=== PATIENT | male | born 1980 | race Caucasian/White ===

== ENCOUNTER → 2017-02-01 | Outpatient (CLI) | payer BC ==
[2017-02-01 09:05] LABS: ALT 39 U/L (21-72); AST 29 U/L (17-59); Alkaline Phosphatase 117 U/L (38-126); Anion Gap 11 mmol/L; Blood Urea Nitrogen 13 mg/dL (9-20); Calcium 10.2 mg/dL (8.4-10.2); Carbon Dioxide 29 mmol/L (22-30); Chloride 104 mmol/L (98-107); Cholesterol 217 mg/dL (<200); Glucose 94 mg/dL (74-99); HDL Cholesterol 64 mg/dL (40-60); Non-African American GFR(MDRD) >60 (>60 ml/min/1.73 sqM); Potassium 4.6 mmol/L (3.5-5.1); Sodium 144 mmol/L (137-145); Total Bilirubin 1.5 mg/dL (0.2-1.3); Total Protein 8.3 g/dL (6.3-8.2); Triglycerides 76 mg/dL (<150)
[2017-02-01 09:11] LABS: Aty Lym Flag Slight; CH 30.9; CHCM 34.7; HCT 45.5 % (39.0-53.0); HDW 2.49; HGB 15.9 gm/dL (13.0-17.5); MCH 31.3 pg (25.0-35.0); MCV 89.6 fL (80.0-100.0); RBC 5.08 m/uL (4.30-5.90); RDW 12.3 % (11.5-15.5); WBC 5.4 k/uL (3.8-10.6); WBC (Perox) 5.27
[2017-02-01 11:15] LABS: Add Differential Manual Differential
[2017-02-01 11:18] LABS: Nucleated Red Blood Cells 0 /100 WBC (0-0)
[2017-02-01 11:20] LABS: Manual Review Performed; Total Cells Counted 200
[2017-02-01 11:21] LABS: RBC Morphology Normal
[2017-02-01 14:04] LABS: Hemoglobin A1C 5.3 % (4.2-6.1)
== END | disposition home or self-care (01) ==
LOC: LABWHC1 08:20
PROVIDERS: ATTEND Internal Medicine Critical Care Medicine
DX: Z00.00 Encounter for general adult medical examination without abnormal findings (principal)
CPT/HCPCS: 36415; 80053; 80061; 83036; 84439; 84443; 85025

== ENCOUNTER 2017-11-17 11:20 | Observation (INO) | payer BC ==
[2017-11-17] MEDS ORDERED: SODIUM CHLORIDE 0.9% 500 ML IV STA (11:27)
[2017-11-17] MEDS ORDERED: RX INFO: IV CONTRAST WAS GIVEN 1 EACH MISC MISCELLANE PRN ×2 (11:28→14:14)
--- NOTE | 2017-11-17 11:34 | ED ---
General Adult HPI - General Stated complaint: SANTOSH/racing heart Time Seen by Provider: 11/17/17 11:27 Source: patient, RN notes reviewed - History of Present Illness Initial comments: 37-year-old male presents with chief complaint of chest pain and dyspnea. Patient was driving his car, felt a squeezing left-sided chest pain. Patient also had palpitations, states his heart was racing. Pain was nonradiating. Pain was accompanied by dyspnea. No nausea vomiting. Patient also complains of numbness in bilateral hands. He also feels shaky. Past medical history of asthma. Patient states he was well prior to this. No cough. No fever or chills. No URI symptoms. Patient has no known history of coronary artery disease. No history DVT or PE. He is not on any daily medications. At the time my evaluation, chest pain is improved, persistent dysuria. - Related Data Home Medications Medication Instructions Recorded Confirmed No Known Home Medications [No 11/17/17 11/17/17 Known Home Medications] Allergies Allergy/AdvReac Type Severity Reaction Status Date / Time No Known Allergies Allergy Verified 11/17/17 12:21 Review of Systems ROS Statement: Those systems with pertinent positive or pertinent negative responses have been documented in the HPI. ROS Other: All systems not noted in ROS Statement are negative. General Exam General appearance: alert, in no apparent distress Head exam: Present: atraumatic, normocephalic Eye exam: Present: normal appearance, PERRL ENT exam: Present: normal exam Neck exam: Present: normal inspection. Absent: tenderness, meningismus Respiratory exam: Present: normal lung sounds bilaterally. Absent: respiratory distress, wheezes Cardiovascular Exam: Present: normal rhythm, tachycardia GI/Abdominal exam: Present: soft. Absent: distended, tenderness Extremities exam: Present: normal inspection, normal capillary refill, other ( Bilateral radial pulses symmetric, bilateral DP pulses symmetric) Neurological exam: Present: alert, oriented X3, CN II-XII intact. Absent: motor sensory deficit Skin exam: Present: warm, intact, diaphoretic Course Vital Signs 11/17/17 11/17/17 11/17/17 11:32 11:41 12:34 Temperature 97.7 F Pulse Rate 85 89 77 Respiratory 18 18 18 Rate Blood Pressure 166/95 160/83 143/91 O2 Sat by Pulse 100 100 97 Oximetry EKG Findings - EKG Comments: EKG Findings:: EKG normal sinus rhythm, ventricular rate 87, WA interval 160, QRS duration 96, QTC 438, there is Q-wave in lead 3 with T-wave inversion, no ST segment elevation. Medical Decision Making - Medical Decision Making 37-year-old male with past medical history of asthma presents with sudden onset squeezing chest pain dyspnea, diaphoresis and palpitations. Pain is resolved at the time of initial evaluation. EKG shows Q waves in lead 3 with T-wave inversion, this is suggestive of PE. CT angiography is obtained, however this is a suboptimal study due to dye load. Patient's symptoms resolving in the emergency department without treatment. He is evaluated by cardiology and pulmonology. Plan at this time is for patient to be taken to the [facility] for coronary angiography. D-dimer and Echo has been added. Diagnosis: Chest pain. - Lab Data Result diagrams: 11/17/17 11:30 11/17/17 11:30 Lab Results 11/17/17 11/17/17 11/17/17 Range/Units 11:30 11:30 11:30 WBC 8.7 (3.8-10.6) k/uL RBC 5.17 (4.30-5.90) m/uL Hgb 15.2 (13.0-17.5) gm/dL Hct 44.3 (39.0-53.0) % MCV 85.7 (80.0-100.0) fL MCH 29.4 (25.0-35.0) pg MCHC 34.3 (31.0-37.0) g/dL RDW 12.1 (11.5-15.5) % Plt Count 357 (150-450) k/uL Neutrophils % 61 % Lymphocytes % 27 % Monocytes % 6 % Eosinophils % 3 % Basophils % 1 % Neutrophils # 5.2 (1.3-7.7) k/uL Lymphocytes # 2.4 (1.0-4.8) k/uL Monocytes # 0.5 (0-1.0) k/uL Eosinophils # 0.2 (0-0.7) k/uL Basophils # 0.1 (0-0.2) k/uL PT (9.0-12.0) sec INR (<1.2) APTT (22.0-30.0) sec Sodium 143 (137-145) mmol/L Potassium 4.0 (3.5-5.1) mmol/L Chloride 102 (98-107) mmol/L Carbon Dioxide 25 (22-30) mmol/L Anion Gap 16 mmol/L BUN 14 (9-20) mg/dL Creatinine 0.88 (0.66-1.25) mg/dL Est GFR (CKD-EPI)AfAm >90 (>60 ml/min/1.73 sqM) Est GFR (CKD-EPI)NonAf >90 (>60 ml/min/1.73 sqM) Glucose 118 H (74-99) mg/dL Calcium 10.4 H (8.4-10.2) mg/dL Magnesium 1.8 (1.6-2.3) mg/dL Total Bilirubin 1.2 (0.2-1.3) mg/dL AST 24 (17-59) U/L ALT 27 (21-72) U/L Alkaline Phosphatase 127 H (38-126) U/L Total Creatine Kinase 137 (55-170) U/L CK-MB (CK-2) 0.5 (0.0-2.4) ng/mL CK-MB (CK-2) Rel Index 0.4 Troponin I <0.012 (0.000-0.034) ng/mL NT-Pro-B Natriuret Pep pg/mL Total Protein 8.4 H (6.3-8.2) g/dL Albumin 5.1 H (3.5-5.0) g/dL Lipase 89 (23-300) U/L 11/17/17 11/17/17 Range/Units 11:30 11:30 WBC (3.8-10.6) k/uL RBC (4.30-5.90) m/uL Hgb (13.0-17.5) gm/dL Hct (39.0-53.0) % MCV (80.0-100.0) fL MCH (25.0-35.0) pg MCHC (31.0-37.0) g/dL RDW (11.5-15.5) % Plt Count (150-450) k/uL Neutrophils % % Lymphocytes % % Monocytes % % Eosinophils % % Basophils % % Neutrophils # (1.3-7.7) k/uL Lymphocytes # (1.0-4.8) k/uL Monocytes # (0-1.0) k/uL Eosinophils # (0-0.7) k/uL Basophils # (0-0.2) k/uL PT 10.4 (9.0-12.0) sec INR 1.1 (<1.2) APTT 23.0 (22.0-30.0) sec Sodium (137-145) mmol/L Potassium (3.5-5.1) mmol/L Chloride (98-107) mmol/L Carbon Dioxide (22-30) mmol/L Anion Gap mmol/L BUN (9-20) mg/dL Creatinine (0.66-1.25) mg/dL Est GFR (CKD-EPI)AfAm (>60 ml/min/1.73 sqM) Est GFR (CKD-EPI)NonAf (>60 ml/min/1.73 sqM) Glucose (74-99) mg/dL Calcium (8.4-10.2) mg/dL Magnesium (1.6-2.3) mg/dL Total Bilirubin (0.2-1.3) mg/dL AST (17-59) U/L ALT (21-72) U/L Alkaline Phosphatase (38-126) U/L Total Creatine Kinase (55-170) U/L CK-MB (CK-2) (0.0-2.4) ng/mL CK-MB (CK-2) Rel Index Troponin I (0.000-0.034) ng/mL NT-Pro-B Natriuret Pep 25 pg/mL Total Protein (6.3-8.2) g/dL Albumin (3.5-5.0) g/dL Lipase (23-300) U/L Disposition Clinical Impression: Chest pain Disposition: ADMITTED IP TO THIS [facility] Condition: Stable Referrals: Rome Marcelo DO [Primary Care Provider] - 1-2 days Decision to Admit Reason: Admit from EC Decision Date: 11/17/17 Decision Time: 13:02
[2017-11-17 11:43] LABS: Basophils # (A) 0.1 k/uL (0-0.2); Basophils % (A) 1 %; Eosinophils # (A) 0.2 k/uL (0-0.7); Eosinophils % (A) 3 %; HCT 44.3 % (39.0-53.0); HGB 15.2 gm/dL (13.0-17.5); Lymphocytes # (A) 2.4 k/uL (1.0-4.8); Lymphocytes % (A) 27 %; MCH 29.4 pg (25.0-35.0); MCHC 34.3 g/dL (31.0-37.0); MCV 85.7 fL (80.0-100.0); Monocytes # (A) 0.5 k/uL (0-1.0); Monocytes % (A) 6 %; Neutrophils # (A) 5.2 k/uL (1.3-7.7); Neutrophils % (A) 61 %; Platelet Count 357 k/uL (150-450); RBC 5.17 m/uL (4.30-5.90); RDW 12.1 % (11.5-15.5); WBC 8.7 k/uL (3.8-10.6)
--- NOTE | 2017-11-17 11:49 | XR ---
EXAMINATION TYPE: XR chest 1V portable DATE OF EXAM: 11/17/2017 COMPARISON: Chest x-ray August 08, 2011. CT chest 04/30/2012. HISTORY: Chest pain. TECHNIQUE: Single AP portable upright view of the chest is obtained. FINDINGS: There is no focal air space opacity, pleural effusion, or pneumothorax seen. The cardiac silhouette size is within normal limits. The osseous structures are intact. IMPRESSION: No acute process currently.
[2017-11-17 11:54] LABS: ALT 27 U/L (21-72); AST 24 U/L (17-59); Albumin 5.1 g/dL (3.5-5.0); Alkaline Phosphatase 127 U/L (38-126); Anion Gap 16 mmol/L; Blood Urea Nitrogen 14 mg/dL (9-20); Calcium 10.4 mg/dL (8.4-10.2); Carbon Dioxide 25 mmol/L (22-30); Chloride 102 mmol/L (98-107); Glucose 118 mg/dL (74-99); Lipase 89 U/L (23-300); Magnesium 1.8 mg/dL (1.6-2.3); Sodium 143 mmol/L (137-145); Total Bilirubin 1.2 mg/dL (0.2-1.3); Total Protein 8.4 g/dL (6.3-8.2)
[2017-11-17 11:57] LABS: INR 1.1 (<1.2); Prothrombin Time 10.4 sec (9.0-12.0)
[2017-11-17 12:12] LABS: Creatine Kinase 137 U/L (55-170)
--- NOTE | 2017-11-17 12:22 | CT ---
EXAMINATION TYPE: CT angio chest DATE OF EXAM: 11/17/2017 COMPARISON: CT chest April 30, 2012 HISTORY: Patient complains of sudden onset shortness of breath and chest pain today. CT DLP: 525 mGycm. Automated Exposure Control for Dose Reduction was Utilized. CONTRAST: CTA scan of the thorax is performed with IV Contrast, patient injected with 100 mL of Omnipaque 350, pulmonary embolism protocol. MIP Images are created on CT scanner and reviewed. FINDINGS: LUNGS: Slight degradation from respiratory motion artifact is present. There is no suspicious consoli dation seen bilaterally. No pleural effusion or pneumothorax is identified. Tracheobronchial tree is patent. MEDIASTINUM: There is suboptimal bolus with heterogeneity and near equal contrast the right and left heart systems. There is no CT evidence of large central or lobar pulmonary embolism. Smaller segmenta l and subsegmental PE though not visualized cannot be definitively excluded on this study. There are no greater than 1 cm hilar or mediastinal lymph nodes. No cardiomegaly or pericardial effusion is s een. There is mild left atrial and left ventricular dilatation felt present OTHER: No additional significant abnormality is seen. IMPRESSION: Suboptimal study without CT evidence for central pulmonary embolism. No suspicious acute pulmonary process.
[2017-11-17 12:25] LABS: Creatine Kinase MB 0.5 ng/mL (0.0-2.4); Troponin I <0.012 ng/mL (0.000-0.034)
[2017-11-17] MEDS ORDERED: NALOXONE 0.4 MG/ML 1 ML VIAL IV PRN (12:59)
[2017-11-17] MEDS ORDERED: ASPIRIN 81 MG PO STA (13:01)
[2017-11-17] MEDS ORDERED: ATORVASTATIN 80 MG TAB PO STA (13:02)
[2017-11-17] MEDS ORDERED: fentaNYL (PF) 50 MCG/ML 2 ML AMP ONE (13:34)
[2017-11-17] MEDS ORDERED: VERAPAMIL 2.5 MG/ML 2 ML AMP ONE (13:40)
[2017-11-17] MEDS ORDERED: fentaNYL (PF) 50 MCG/ML 2 ML AMP IV ONE (13:47)
[2017-11-17] MEDS ORDERED: LIDOCAINE 2% INJ 20 MG/ML SQ ONE (13:48)
[2017-11-17] MEDS ORDERED: SODIUM CHLORIDE 0.9% 1,000 ML IV ONE (13:50)
[2017-11-17] MEDS ORDERED: VERAPAMIL SYRINGE (5 MG/10 ML) INTRAARTER ONE (13:50)
[2017-11-17] MEDS ORDERED: HEPARIN SODIUM 1,000 UN/ML (10ML VL) ONE (13:55)
[2017-11-17] MEDS ORDERED: HEPARIN SODIUM 1,000 UN/ML (10ML VL) IV ONE (14:00)
[2017-11-17] MEDS ORDERED: IOHEXOL 350 MG/ML 125ML BOTTLE INJ ONE (14:01)
[2017-11-17] MEDS ORDERED: SODIUM CHLORIDE 0.9% 1,000 ML IV SCH (14:15)
--- NOTE | 2017-11-17 14:33 | CC ---
CARDIAC CATHETERIZATION REPORT Mr. Campbell is a 37-year-old male with no prior documented history of cardiac disease who presented to the emergency room with an episode of severe chest discomfort associated with diaphoresis, dizziness and palpitations. His initial EKG and enzymes were unremarkable. He was evaluated by Dr. Triplett. Recommendation was made regarding cardiac catheterization. The procedure as well as risks and complications were discussed with the patient, who was in full understanding and agreement. PROCEDURE: Patient was brought to the track lab[facility] in a fasting, semi-sedated state after receiving fentanyl and Benadryl and achieving a moderate conscious sedated state. Using Xylocaine anesthesia and the Seldinger technique, a 6-Argentine sheath was introduced in the right radial artery. Selective right and left coronary angiography was performed using 5-Argentine, 3.5 Bend, right and left Shelly catheters. Multiple views were taken of the arteries, including hemiaxial views. Following that, a 5-Argentine tight pigtail catheter was introduced in the left ventricle and a 30-degree JETER view of the left ventricle was obtained. Following that, catheter and sheaths were removed. Hemostasis was obtained with deployment of a TR band. There was no immediate complication. Patient was returned to his room in stable condition. FINDINGS: 1. Left main. This is a large-sized vessel trifurcating into left circumflex, left anterior descending artery and ramus intermedius. Left main coronary artery is without any obstructive coronary artery disease. 2. Left anterior descending. This is a large-sized vessel reaching toward the apex with a wrap around apex segment giving rise to 3 obtuse marginal branches, 2 of moderate caliber. The left anterior descending artery as well as its branches have no evidence of obstructive coronary artery disease. 3. Left circumflex. This is a nondominant, moderately-sized vessel that gives rise to 3 small obtuse marginal branches. The left circumflex as well as its branches have no evidence of obstructive coronary artery disease. 4. Ramus intermedius. This is a moderately sized vessel reaching toward the apical wall. The ramus intermedius and its branches have no evidence of obstructive coronary artery disease. 5. Right coronary artery: This is a large dominant vessel bifurcating distally into PDA and posterolateral segment and branches. The PLV branch is large and covers the lateral wall. The right coronary artery and its branches have no evidence of obstructive coronary artery disease. 6. Left ventriculogram. Left ventriculogram was performed in 30-degree JETER view and reveals normal left ventricular size and systolic function. Ejection fraction is 60%. 7. Hemodynamics. There was no gradient across the aortic valve. The left ventricular end-diastolic pressure was 12 mmHg. CONCLUSION: 1. Normal coronary arteries. 2. Normal left ventricular size and systolic function. RECOMMENDATION: In view of findings and anatomy, I have recommended continue medical therapy. I see no evidence to suggest obstructive coronary artery disease as etiology of his symptoms. Those findings and recommendations were discussed with the patient and his family, and they are in full understanding and agreement. DURATION OF PROCEDURE: 17 minutes. MMODL / IJN: [id number] /
--- NOTE | 2017-11-17 14:46 | LTR ---
November 17, 2017 To: Dr. Rome Marcelo Re: Blue Campbell (76) Dear Dr. Marcelo, I had the pleasure of performing cardiac catheterization on Mr. Campbell at [facility] on November 17, and a full copy of the procedure note will be forwarded to you. In brief, he was found to have no evidence of obstructive coronary artery disease, with a normal left ventricular size and systolic function. Based on those findings, I have recommended continuing on the present medical regimen. Thank you again for allowing me to participate in his care. Please feel free to call with any questions. Sincerely, Sergio ORELLANAL / AFSANEHN: [id number] /
[2017-11-17 14:47] VITALS: BMI 26.2
[2017-11-17 16:09] VITALS: RESP 16; TEMP 98.8
--- NOTE | 2017-11-17 17:01 | P.HPIM ---
History of Present Illness H&P Date: 11/17/17 Chief Complaint: Chest pain A 37-year-old male patient, healthy without any known medical problems and comorbidities. The patient's chief complaint when he presented to the emergency department was chest pain and this occurred while he was driving his car this morning. He was on the road to burr picker his kids when he felt a squeezing left-sided chest pain. He became concerned and worried and following that he became short of breath and somewhat diaphoretic. The pain was not radiating it was not third taken nature. He did not have any nausea or vomiting. He did not pass out. No syncope. No swelling in lower extremities. No previous history of cardiac disease. No previous history of DVT or pulmonary embolism. In the emergency department the blood work was essentially negative. He had a normal d-dimer. CT angios the chest was done that showed no evidence of any pulmonary embolism nor there was any pneumonia. The patient' s first set of chronic is a was negative. EKG was nonspecific and was in normal sinus rhythm. The patient a cardiac catheterization and the patient was found to have normal coronaries. Currently is on observation unit and the patient is being hydrated in its patient for discharge within next few hours. The cardiac catheterization was done through the radial approach by Dr. Rodríguez. An echocardiogram was also done in the emergency department that showed no acute abnormalities. Currently the patient is free of any chest pain. In fact the chest pain lasted only for 15 minutes. Review of Systems Constitutional: Denies chills, Denies fever Eyes: denies blurred vision, denies bulging eye, denies decreased vision Ears: deny: decreased hearing, ear discharge, earache Ears, nose, mouth and throat: Denies headache, Denies sore throat Cardiovascular: Reports chest pain Respiratory: Denies cough Gastrointestinal: Denies abdominal pain, Denies diarrhea, Denies nausea, Denies vomiting Genitourinary: Reports as per HPI Musculoskeletal: Reports as per HPI Musculoskeletal: absent: ankle pain, ankle stiffness, ankle swelling Integumentary: Denies pruritus, Denies rash Neurological: Denies numbness, Denies weakness Psychiatric: Denies anxiety, Denies depression Endocrine: Denies fatigue, Denies weight change Hematologic/Lymphatic: Reports as per HPI Allergic/Immunologic: Reports as per HPI Past Medical History Past Medical History: Asthma History of Any Multi-Drug Resistant Organisms: None Reported Past Surgical History: No Surgical Hx Reported Smoking Status: Never smoker Medications and Allergies Home Medications Medication Instructions Recorded Confirmed Type No Known Home Medications [No 11/17/17 11/17/17 History Known Home Medications] Allergies Allergy/AdvReac Type Severity Reaction Status Date / Time No Known Allergies Allergy Verified 11/17/17 12:21 Physical Exam Vitals: Vital Signs Temp Pulse Pulse Resp BP BP Pulse Ox 11/17/17 14:20 98.8 F 81 16 133/72 98 11/17/17 13:45 97.7 F 87 18 148/67 98 11/17/17 13:06 98 18 128/70 97 11/17/17 12:34 77 18 143/91 97 11/17/17 11:41 89 18 160/83 100 11/17/17 11:32 97.7 F 85 18 166/95 100 Intake and Output 11/17/17 11/17/17 11/17/17 06:59 14:59 22:59 Intake Total 175 Balance 175 Intake: IV 75 Oral 100 Other: Voiding Method Toilet Toilet Weight 83 kg Patient Weight 11/18/17 07:59 Weight 83 kg The patient appeared well nourished and normally developed. Vital signs as documented. Head exam is unremarkable. No scleral icterus or corneal arcus noted. Neck is without jugular venous distension, thyromegaly, or carotid bruits. Carotid upstrokes are brisk bilaterally. Lungs are clear to auscultation and percussion. Cardiac exam reveals the PMI to be normally sized and situated. Rhythm is regular. First and second heart sounds normal. No murmurs, rubs or gallops. Abdominal exam reveals normal bowel sounds, no masses , no organomegaly and no aortic enlargement. Extremities are nonedematous and both femoral and pedal pulses are normal.Examination of the skin revealed no evidence of significant rashes, suspicious appearing nevi or other concerning lesions. Neurologic the patient is awake and alert and there is no focal neurological deficit. Results CBC & Chem 7: 11/17/17 11:30 11/17/17 11:30 Labs: Abnormal Lab Results - Last 24 Hours (Table) 11/17/17 Range/Units 11:30 Glucose 118 H (74-99) mg/dL Calcium 10.4 H (8.4-10.2) mg/dL Alkaline Phosphatase 127 H (38-126) U/L Total Protein 8.4 H (6.3-8.2) g/dL Albumin 5.1 H (3.5-5.0) g/dL CT scan - chest: image reviewed Thrombosis Risk Factor Assmnt - Choose All That Apply Any of the Below Risk Factors Present?: Yes Each Factor Represents 1 point: Age 41-60 years Other Risk Factors: No Thrombosis Risk Factor Assessment Total Risk Factor Score: 1 Thrombosis Risk Factor Assessment Level: Low Risk Assessment and Plan Plan: Assessment 1 atypical chest pain, not related to any cardiopulmonary cause and the patient is completely recovered and is chest pain-free. He remains hemodynamically stable. Plan Hydrate the patient for the next few hours with IV fluids and the patient is receiving normal saline at the rate of 100 mL an hour.. The patient can be discharged home this afternoon to be followed up with Dr. Marcelo
--- NOTE | 2017-11-17 17:04 | P.DS ---
Providers Date of admission: 11/17/17 12:59 Attending physician: Luis Ruiz Consults: 11/17/17 12:26 Consult Physician Stat Consulting Provider: Karel Triplett Consult Reason/Comments: CP Do you want consulting provider notified?: Already Contacted Primary care physician: Rome Marcelo [place] [facility] Course: The patient was evaluated for his chest pain. He underwent a CT angios the chest that came back negative. Cardiac enzymes were normal. EKG was negative. D-dimer was low. Cardiac catheterization was done and was consistent with normal coronaries. Echocardiogram was also within normal limits. The patient was discharged home and the chest pain was labeled to be atypical and noncardiac and nonpulmonary in nature. Pertinent Studies: CT angios the chest, EKG, echocardiogram, cardiac catheterization Procedures: Cardiac catheterization Plan - Discharge Summary Discharge Rx Participant: No New Discharge Prescriptions: No Action No Known Home Medications [No Known Home Medications] Discharge Medication List No Known Home Medications [No Known Home Medications] 11/17/17 [History] Follow up Appointment(s)/Referral(s): Rome Marcelo DO [Primary Care Provider] - 1-2 days Discharge Disposition: HOME SELF-CARE
[2017-11-17 17:14] VITALS: BP 125/76; PULSE 69
--- NOTE | 2017-11-17 19:16 | CONS ---
CONSULTATION 37-year-old gentleman who presented with chest discomfort. The patient is a 37 -year-old patient who was in his car driving and he started experiencing fairly sever chest discomfort that made him quite uncomfortable and finally he had to stop. He had associated symptoms of feeling weak and dizzy. His heart racing and he is feeling sweaty and flushed and very weak. He finally pulled over, went to his friend's place and then was brought to the emergency room. By the time he arrived in the emergency room, he was pain free. 12-lead ECG showed sinus rhythm without any ST-segment abnormalities while in a pain-free state. He has never experienced syncope, but he has had occasional dizzy spells. PAST HISTORY: No history of diabetes, hypertension, dyslipidemia. ALLERGIES: No known drug allergies. MEDICATIONS: He is not on any cardiac medications. SOCIAL HISTORY: No history of smoking. REVIEW OF SYSTEMS: No fever, chills, or rigors. No cough or expectoration. No nausea, vomiting, diarrhea, dysuria. No strokes, seizures or skin lesions. No musculoskeletal complaints. EXAMINATION: His blood pressure is a 148/67 mmHg. Pulse rate in the 80s. Afebrile, 98 degrees Fahrenheit. Heart rate in the 80s. Blood pressure 128/70 mmHg. Some of the readings are elevated, but he does not have a history of hypertension. No JVD. No thyromegaly. No carotid bruits. HEART: Sounds S1, S2 normal. No murmurs or gallops, no rub. Breath sounds are clear. No rhonchi, no crackles. ABDOMEN: Soft, nontender. No JVD. No hepatic jugular reflux. Extremities are warm. No edema. A 12-lead ECG was reviewed and is normal. LABS: Reviewed. Hemoglobin is 15.2, lytes are normal. Glucose 118, alkaline phosphatase in the upper limits of normal. IMPRESSION: I had a detailed discussion with him and his regarding his options of proceeding with coronary angiography versus observation, IV heparin and reassessment thereafter and the pros and cons were discussed and he decided to proceed with coronary angiography to delineate any epicardial coronary artery disease because of his transient but very severe chest discomfort while driving with the associated symptoms as mentioned above, further management thereafter. I called Dr. Rodríguez and we will be proceeding with coronary angiography. MMODL / IJN: [id number] /
--- NOTE | 2017-11-18 13:45 | ECHOF ---
Referral Reason:cp MEASUREMENTS -------- HEIGHT: 180.3 cm WEIGHT: 83.9 kg BP: IVSd: 1.0 cm (0.6 - 1.1) LVIDd: 4.0 cm (3.9 - 5.3) LVPWd: 1.2 cm (0.6 - 1.1) IVSs: 1.5 cm LVIDs: 2.4 cm LVPWs: 1.6 cm RVIDd: 3.7 cm (< 3.3) Ao Diam: 3.1 cm (2.0 - 3.7) LA Diam: 3.7 cm (2.7 - 3.8) AV Cusp: 2.3 cm (1.5 - 2.6) EPSS: 0.7 cm MV E Chadwick: 0.80 m/s MV DecT: 242 ms MV A Chadwick: 0.63 m/s MV E/A Ratio: 1.27 RAP: 5.00 mmHg RVSP: 29.66 mmHg MV EF SLOPE: 119.48 mm/s (70 - 150) MV EXCURSION: 20.82 mm (> 18.000) FINDINGS -------- Sinus rhythm. This was a technically good study. The left ventricular size is normal. There is borderline concentric left ventricular hypertrophy. Overall left ventricular systolic function is normal with, an EF between 55 - 60 %. The right ventricle is mildly enlarged. The left atrium is normal in size. The right atrium is normal in size. The aortic valve is trileaflet, and appears structurally normal. No aortic stenosis or regurgitation. There is trace mitral regurgitation. Trace tricuspid regurgitation present. The right ventricular systolic pressure, as measured by Dopp ler, is 29.66mmHg. Pulmonic valve appears structurally normal. The aortic root size is normal. Normal inferior vena cava with normal inspiratory collapse consistent with estimated right atrial pre ssure of 5 mmHg. The pericardium is normal. CONCLUSIONS -------- 1. Sinus rhythm. 2. This was a technically good study. 3. The left ventricular size is normal. 4. There is borderline concentric left ventricular hypertrophy. 5. Overall left ventricular systolic function is normal with, an EF between 55 - 60 %. 6. The right ventricle is mildly enlarged. 7. The left atrium is normal in size. 8. The right atrium is normal in size. 9. The aortic valve is trileaflet, and appears structurally normal. No aortic stenosis or regurgitati on. 10. There is trace mitral regurgitation. 11. Trace tricuspid regurgitation present. 12. The right ventricular systolic pressure, as measured by Doppler, is 29.66mmHg. 13. Pulmonic valve appears structurally normal. 14. The aortic root size is normal. 15. Normal inferior vena cava with normal inspiratory collapse consistent with estimated right atrial pressure of 5 mmHg. 16. The pericardium is normal. DIRECTOR OF STUDENT AID: Roxann Perry RDCS
== END 2017-11-17 18:56 | disposition home or self-care (01) ==
LOC: EC 11:20 → 3OBS 12:59
PROVIDERS: ADMIT Internal Medicine Critical Care Medicine; ATTEND Internal Medicine Critical Care Medicine
DX: R07.89 Other chest pain (principal); R06.00 Dyspnea, unspecified; R00.2 Palpitations; R00.0 Tachycardia, unspecified; R20.0 Anesthesia of skin; R61 Generalized hyperhidrosis; R53.1 Weakness; R42 Dizziness and giddiness; R06.02 Shortness of breath; J45.909 Unspecified asthma, uncomplicated
CPT/HCPCS: 99285 ×2; 36415; 93306; 93458; 85379; 83880; 80053; 82550; 82553; 83690; 83735; 84484; 85025; 85610; 85730; 71045; 71275; G0378; C1894; C1769; J2001; Q9967 ×2; J3010; J1644

== ENCOUNTER → 2018-02-05 | Outpatient (CLI) | payer BC ==
[2018-02-05 11:59] LABS: Basophils # (A) 0.1 k/uL (0-0.2); Basophils % (A) 2 %; Eosinophils # (A) 0.1 k/uL (0-0.7); Eosinophils % (A) 2 %; HCT 45.5 % (39.0-53.0); Lymphocytes # (A) 1.7 k/uL (1.0-4.8); Lymphocytes % (A) 27 %; MCH 29.5 pg (25.0-35.0); MCV 89.4 fL (80.0-100.0); Mean Platelet Volume 7.4; Monocytes # (A) 0.5 k/uL (0-1.0); Monocytes % (A) 8 %; Neutrophils # (A) 3.6 k/uL (1.3-7.7); Neutrophils % (A) 57 %; Platelet Count 310 k/uL (150-450); RBC 5.09 m/uL (4.30-5.90); RDW 12.4 % (11.5-15.5); WBC 6.2 k/uL (3.8-10.6)
[2018-02-05 12:25] LABS: ALT 42 U/L (21-72); AST 29 U/L (17-59); Albumin 4.9 g/dL (3.5-5.0); Alkaline Phosphatase 128 U/L (38-126); Anion Gap 14 mmol/L; Blood Urea Nitrogen 13 mg/dL (9-20); Calcium 10.1 mg/dL (8.4-10.2); Carbon Dioxide 29 mmol/L (22-30); Chloride 98 mmol/L (98-107); Cholesterol 229 mg/dL (<200); Glucose 91 mg/dL (74-99); HDL Cholesterol 70 mg/dL (40-60); LDL Cholesterol,Calculated 139 mg/dL (0-99); Potassium 4.6 mmol/L (3.5-5.1); Sodium 141 mmol/L (137-145); Total Bilirubin 1.7 mg/dL (0.2-1.3); Triglycerides 98 mg/dL (<150)
[2018-02-05 12:38] LABS: T4, Free (Free Thyroxine) 1.22 ng/dL (0.78-2.19)
[2018-02-05 22:18] LABS: Hemoglobin A1C 5.4 % (4.0-6.0)
== END | disposition home or self-care (01) ==
LOC: LABWHC1 10:57
PROVIDERS: ATTEND Internal Medicine Critical Care Medicine
DX: Z00.00 Encounter for general adult medical examination without abnormal findings (principal)
CPT/HCPCS: 36415; 80053; 80061; 83036; 84439; 84443; 85025

== ENCOUNTER → 2018-08-13 | Outpatient (CLI) | payer BC ==
[2018-08-13 14:51] LABS: Basophils # (A) 0.1 k/uL (0-0.2); Basophils % (A) 1 %; Eosinophils # (A) 0.2 k/uL (0-0.7); Eosinophils % (A) 2 %; HCT 46.7 % (39.0-53.0); HGB 15.8 gm/dL (13.0-17.5); Lymphocytes # (A) 1.7 k/uL (1.0-4.8); Lymphocytes % (A) 27 %; MCH 30.1 pg (25.0-35.0); MCHC 33.9 g/dL (31.0-37.0); MCV 88.9 fL (80.0-100.0); Mean Platelet Volume 7.3; Monocytes # (A) 0.5 k/uL (0-1.0); Monocytes % (A) 8 %; Neutrophils # (A) 3.7 k/uL (1.3-7.7); Neutrophils % (A) 60 %; Platelet Count 335 k/uL (150-450); RBC 5.25 m/uL (4.30-5.90); RDW 11.9 % (11.5-15.5); WBC 6.3 k/uL (3.8-10.6)
[2018-08-13 19:22] LABS: Albumin 4.8 g/dL (3.80-4.90); Calcium 9.8 mg/dL (8.7-10.3); Globulin 2.4 g/dL (2.1-3.7); Potassium 4.5 mmol/L (3.5-5.5); Total Bilirubin 0.8 mg/dL (0.2-1.2); Total Protein 7.2 g/dL (6.2-8.2)
== END | disposition home or self-care (01) ==
LOC: LABWHC1 13:28
PROVIDERS: ATTEND Internal Medicine Critical Care Medicine
DX: R10.9 Unspecified abdominal pain (principal)
CPT/HCPCS: 36415; 80053; 82150; 83690; 85025; 86677

== ENCOUNTER → 2018-08-23 | Outpatient (CLI) | payer BC ==
--- NOTE | 2018-08-23 12:29 | CT ---
EXAMINATION TYPE: CT abdomen pelvis w con DATE OF EXAM: 08/23/2018 COMPARISON: CT abdomen pelvis 09/24/2009 HISTORY: Disease of gallbladder CT DLP: 877.9 mGycm Automated exposure control for dose reduction was used. TECHNIQUE: Helical acquisition of images from the lung bases through the pelvis have been completed. CONTRAST: Performed with Oral Contrast and with IV Contrast, patient injected with 100 mL of Isovue 300. FINDINGS: LUNG BASES: No significant abnormality is appreciated. AORTA: No significant abnormality is appreciated. LIVER/GB: No significant abnormality is appreciated. PANCREAS: No significant abnormality is seen. SPLEEN: Enlarged. ADRENALS: No significant abnormality is seen. KIDNEYS: No significant abnormality is seen. REPRODUCTIVE ORGANS: No significant abnormality is seen BOWEL: No significant abnormality is seen. The appendix is normal. Small umbilical hernia contains f at. FREE AIR: No Free Air visible. ASCITES: None visible. PELVIC ADENOPATHY: None visualized. RETROPERITONEAL ADENOPATHY: No Retroperitoneal Adenopathy visible. URINARY BLADDER: No significant abnormality is seen. OSSEOUS STRUCTURES: No significant abnormality is seen. IMPRESSION: SPLEEN IS STABLE AND MEASURES INCREASED SIZE. Additional findings above.
== END | disposition home or self-care (01) ==
LOC: RADCTMAIN 09:25
PROVIDERS: ATTEND Internal Medicine Critical Care Medicine
DX: R16.1 Splenomegaly, not elsewhere classified (principal); K82.9 Disease of gallbladder, unspecified
CPT/HCPCS: 74177; Q9967

== ENCOUNTER → 2018-08-23 | Outpatient (CLI) | payer BC ==
--- NOTE | 2018-08-23 13:41 | US ---
EXAMINATION TYPE: US abdomen limited DATE OF EXAM: 08/23/2018 COMPARISON: NONE CLINICAL HISTORY: K82.9 DX OF GALLBLADDER. abd bloating and pain x 2 months EXAM MEASUREMENTS: Liver Length: 15.9 cm Gallbladder Wall: 0.2 cm CBD: 0.5 cm Right Kidney: 9.9 x 4.9 x 4.5 cm overlying bowel gas limits exam, patient was chewing gum, intercostal imaging used Pancreas: not seen due to gas Liver: wnl Gallbladder: wnl Evidence for sonographic Marques's sign: no CBD: wnl Right Kidney: wnl IMPRESSION: 1. Right upper quadrant ultrasound unremarkable as visualized.
== END | disposition home or self-care (01) ==
LOC: RADUSWWP 08:44
PROVIDERS: ATTEND Internal Medicine Critical Care Medicine
DX: K82.9 Disease of gallbladder, unspecified (principal)
CPT/HCPCS: 76705

== ENCOUNTER → 2019-02-07 | Outpatient (CLI) | payer BC ==
[2019-02-07 10:21] LABS: Basophils # (A) 0.1 k/uL (0-0.2); Basophils % (A) 1 %; Eosinophils # (A) 0.1 k/uL (0-0.7); Eosinophils % (A) 2 %; HCT 47.3 % (39.0-53.0); HGB 15.5 gm/dL (13.0-17.5); Lymphocytes # (A) 1.4 k/uL (1.0-4.8); Lymphocytes % (A) 23 %; MCH 29.1 pg (25.0-35.0); MCHC 32.7 g/dL (31.0-37.0); MCV 88.9 fL (80.0-100.0); Mean Platelet Volume 7.7; Monocytes # (A) 0.5 k/uL (0-1.0); Monocytes % (A) 8 %; Neutrophils # (A) 3.8 k/uL (1.3-7.7); Neutrophils % (A) 63 %; Platelet Count 341 k/uL (150-450); RBC 5.32 m/uL (4.30-5.90); RDW 12.2 % (11.5-15.5); WBC 5.9 k/uL (3.8-10.6)
[2019-02-07 17:19] LABS: African American GFR (CKD) 107.9 (60.0-200.0); Albumin 4.9 g/dL (3.80-4.90); Albumin/Globulin Ratio 1.96 (1.60-3.17); Calcium 10.1 mg/dL (8.7-10.3); Globulin 2.5 g/dL (1.6-3.3); LDL Cholesterol,Calculated 131.2 mg/dL (0.0-131.0); Potassium 4.5 mmol/L (3.5-5.5); Total Bilirubin 1.3 mg/dL (0.3-1.2); Total Protein 7.4 g/dL (6.2-8.2); VLDL Calculation 17.8 mg/dL (5.00-40.00)
[2019-02-07 17:28] LABS: T4, Free (Free Thyroxine) 1.2 ng/dL (0.80-1.80)
[2019-02-07 19:12] LABS: Hemoglobin A1C 5.4 % (4.0-6.0)
== END | disposition home or self-care (01) ==
LOC: LABWHC1 09:44
PROVIDERS: ATTEND Internal Medicine Critical Care Medicine
DX: Z00.00 Encounter for general adult medical examination without abnormal findings (principal); J45.909 Unspecified asthma, uncomplicated
CPT/HCPCS: 36415; 80053; 80061; 82306; 83036; 84439; 84443; 85025

== ENCOUNTER 2024-10-13 16:58 | Emergency (ER) | payer BC ==
--- NOTE | 2024-10-13 17:30 | ED ---
Chest Pain HPI - General Chief Complaint: Weakness Stated Complaint: High BP SANTOSH Time Seen by Provider: 10/13/24 17:21 Source: patient, RN notes reviewed, old records reviewed Mode of arrival: ambulatory Limitations: no limitations - History of Present Illness Initial Comments: This is a 44-year-old male to ER for evaluation of a few complaints but mainly related to elevated blood pressure of recent. Patient has noticed blood pressure to be elevated since last Sunday and has been persistently elevated since. Patient has had cardiac catheterization about 6 years ago which was found to be normal. Occasional chest pain here in the emergency room today no significant anxiety and stress no recent drugs or alcohol family history of heart disease patient himself does not have diagnosed high blood pressure not on medications, watching cholesterol MD Complaint: chest pain, other (Hypertension) -: days(s) (5) Onset: during rest Pain Location: substernal, left chest Pain Radiation: none Severity: mild Severity scale (1-10): 3 Quality: tightness Consistency: intermittent Improves With: nothing Worsens With: nothing Treatments Prior to Arrival: none - Related Data Previous Rx's Medication Instructions Recorded lisinopriL [Zestril] 10 mg PO DAILY #60 tab 10/13/24 Allergies Allergy/AdvReac Type Severity Reaction Status Date / Time No Known Allergies Allergy Verified 10/13/24 17:07 Review of Systems ROS Statement: Those systems with pertinent positive or pertinent negative responses have been documented in the HPI. ROS Other: All systems not noted in ROS Statement are negative. EKG Findings - EKG Comments: EKG Findings:: EKG is sinus 92 OR 169 QRS 101 QTc 396 - EKG Results: EKG: interpreted by PEARL Past Medical History Past Medical History: Asthma History of Any Multi-Drug Resistant Organisms: None Reported Past Surgical History: No Surgical Hx Reported Past Psychological History: No Psychological Hx Reported Smoking Status: Never smoker Past Alcohol Use History: Occasional Past Drug Use History: None Reported General Exam Limitations: no limitations General appearance: alert, in no apparent distress Head exam: Present: atraumatic, normocephalic, normal inspection Eye exam: Present: normal appearance, PERRL, EOMI. Absent: scleral icterus, conjunctival injection, periorbital swelling ENT exam: Present: normal exam, mucous membranes moist Neck exam: Present: normal inspection. Absent: tenderness, meningismus, l ymphadenopathy Respiratory exam: Present: normal lung sounds bilaterally. Absent: respiratory distress, wheezes, rales, rhonchi, stridor Cardiovascular Exam: Present: regular rate, normal rhythm, normal heart sounds. Absent: systolic murmur, diastolic murmur, rubs, gallop, clicks GI/Abdominal exam: Present: soft, normal bowel sounds. Absent: distended, tenderness, guarding, rebound, rigid Extremities exam: Present: normal inspection, full ROM, normal capillary refill. Absent: tenderness, pedal edema, joint swelling, calf tenderness Back exam: Present: normal inspection Neurological exam: Present: alert, oriented X3, CN II-XII intact Psychiatric exam: Present: normal affect, normal mood Skin exam: Present: warm, dry, intact, normal color. Absent: rash Course Vital Signs 10/13/24 10/13/24 17:01 17:50 Temperature 97.9 F 98.5 F Pulse Rate 95 85 Respiratory 18 16 Rate Blood Pressure 156/105 134/97 O2 Sat by Pulse 98 95 Oximetry - Reevaluation(s) Reevaluation #1: 10/13/24 17:51 Medical records reviewed Reevaluation #2: 10/13/24 18:44 No change in symptoms here in the ER Reevaluation #3: 10/13/24 18:44 Patient informed of results and questions answered Reevaluation #4: Was pt. sent in by a medical professional or institution (, PA, BUSINESS ANALYSIS ANALYST, urgent care, hospital, or [facility]...) When possible be specific @ -no Did you speak to anyone other than the patient for history (EMS, parent, family, police, friend...)? What history was obtained from this source @ -no Did you review nursing and triage notes (agree or disagree)? Why? @ -agree Are old charts reviewed (outside hosp., previous admission, EMS record, old EKG, old radiological studies, urgent care reports/EKG's, [facility] records)? Report findings @ -yes Differential Diagnosis (chest pain, altered mental status, abdominal pain women, abdominal pain men, vaginal bleeding, weakness, fever, dyspnea, syncope, headache, dizziness, GI bleed, back pain, seizure, CVA, palpatations, mental health, musculoskeletal)? @ -prior EKG interpreted by me (3pts min.). @ -yes X-rays interpreted by me (1pt min.). @ -yes negative for acute disease CT interpreted by me (1pt min.). @ -no U/S interpreted by me (1pt. min.). @ -no What testing was considered but not performed or refused? (CT, X-rays, U/S, labs)? Why? @ -none What meds were considered but not given or refused? Why? @ -none Did you discuss the management of the patient with other professionals (professionals i.e. , PA, BUSINESS ANALYSIS ANALYST, lab, RT, psych nurse, group social worker, commissary helper, teacher, patient safety officer, pillowcase cleaner)? Give summary @ -no Was smoking cessation discussed for >3mins.? @ -no Was critical care preformed (if so, how long)? @ -no Were there social determinants of health that impacted care today? How? (Homelessness, low income, unemployed, alcoholism, drug addiction, transportation, low edu. Level, literacy, decrease access to med. care, longterm, rehab)? @ -none Was there de-escalation of care discussed even if they declined (Discuss DNR or withdrawal of care, Hospice)? DNR status @ -no What co-morbidities impacted this encounter? (DM, HTN, Smoking, COPD, CAD, Cancer, CVA, ARF, Chemo, Hep., AIDS, mental health diagnosis, sleep apnea, morbid obesity)? @ -none Was patient admitted / discharged? Hospital course, mention meds given and route, prescriptions, significant lab abnormalities, going to OR and other pertinent info. @ - Undiagnosed new problem with uncertain prognosis? @ -no Drug Therapy requiring intensive monitoring for toxicity (Heparin, Nitro, Insulin, Cardizem)? @ -no Were any procedures done? @ -no Diagnosis/symptom? @ - Acute, or Chronic, or Acute on Chronic? @ -Acute Uncomplicated (without systemic symptoms) or Complicated (systemic symptoms)? @ -Complicated Side effects of treatment? @ -no Exacerbation, Progression, or Severe Exacerbation? @ -exacerbation Poses a threat to life or bodily function? How? (Chest pain, USA, DC, pneumonia, PE, COPD, DKA, ARF, appy, cholecystitis, CVA, Diverticulitis, Homicidal, Suicidal, threat to staff... and all critical care pts) @ -yes Reevaluation #5: Differential Chest Pain: Stable Angina, Unstable Angina, STEMI, NSTEMI Aortic Dissection, Pneumothorax, Musculoskeletal, Esophageal Spasm GERD, Cholecystitis, Pancreatitis, Zoster, this is not meant to be an all-inclusive list. Chest Pain MDM - MDM 44 male to the ER for evaluation patient in today for evaluation of hypertension new onset hypertension here, patient given weight loss exercise instructions will start on blood pressure medication can be discharged home Disposition Clinical Impression: Hypertension Disposition: HOME SELF-CARE Condition: Good Instructions (If sedation given, give patient instructions): Hypertension (ED) Prescriptions: lisinopriL [Zestril] 10 mg PO DAILY #60 tab Is patient prescribed a controlled substance at d/c from ED?: No Referrals: Rome Marcelo DO [Primary Care Provider] - 1-2 days Time of Disposition: 18:45
[2024-10-13] MEDS: SODIUM CHLORIDE 0.9% 500 ML 500 ML IV STA (17:42)
[2024-10-13] MEDS: KETOROLAC 15 MG/ML 1 ML VIAL IVP STA (17:43)
[2024-10-13 17:56] LABS: Basophils # (A) 0.1 k/uL (0-0.2); Basophils % (A) 1 %; Eosinophils # (A) 0.2 k/uL (0-0.7); Eosinophils % (A) 3 %; HCT 44.4 % (39.0-53.0); HGB 15.2 gm/dL (13.0-17.5); Lymphocytes % (A) 29 %; MCHC 34.1 g/dL (31.0-37.0); MCV 87.9 fL (80.0-100.0); Mean Platelet Volume 8.1; Monocytes # (A) 0.5 k/uL (0-1.0); Monocytes % (A) 8 %; Neutrophils % (A) 57 %; Platelet Count 358 k/uL (150-450); RBC 5.06 m/uL (4.30-5.90); RDW 11.7 % (11.5-15.5)
[2024-10-13 18:00] VITALS: RESP 16
[2024-10-13 18:07] LABS: Partial Thromboplastin Time 23.8 sec (22.0-30.0); Prothrombin Time 11.2 sec (10.0-12.5)
[2024-10-13 18:08] LABS: ALT 37 U/L (4-49); AST 27 U/L (17-59); African American GFR (CKD) >90 (>60 ml/min/1.73 sqM); Albumin 4.9 g/dL (3.5-5.0); Alkaline Phosphatase 105 U/L (38-126); Anion Gap 9 mmol/L; Blood Urea Nitrogen 18 mg/dL (9-20); Calcium 10.3 mg/dL (8.4-10.2); Carbon Dioxide 28 mmol/L (22-30); Chloride 101 mmol/L (98-107); Glucose 101 mg/dL (74-99); Lipase 69 U/L (23-300); Non-African American GFR(CKD) >90 (>60 ml/min/1.73 sqM); Potassium 4.3 mmol/L (3.5-5.1); Sodium 138 mmol/L (137-145); Total Bilirubin 1.2 mg/dL (0.2-1.3); Total Protein 8.2 g/dL (6.3-8.2)
[2024-10-13 18:16] LABS: NT-Pro-B-Type Natriuretic Pept <20 pg/mL
--- NOTE | 2024-10-13 18:21 | XR ---
EXAMINATION TYPE: XR chest 2V DATE OF EXAM: 10/13/2024 6:06 PM CLINICAL INDICATION:Male, 44 years old with history of Chest Pain; [facility] COMPARISON: Chest radiographs from 11/17/2017. TECHNIQUE: XR chest 2V Frontal view of the chest. FINDINGS: Lungs/Pleura: There is no evidence of pleural effusion, focal consolidation, or pneumothorax. Pulmonary vascularity: Unremarkable. Heart/mediastinum: Cardiomediastinal silhouette is unremarkable. Musculoskeletal: No acute osseous pathology. Other findings: Gaseous distended loops of bowel are partially visualized in the upper abdomen. IMPRESSION: 1. No acute cardiopulmonary disease/process. 2. Partially visualized gaseous distended loops of bowel in the upper abdomen may relate to underlyin g ileus versus bowel obstruction. Close clinical follow-up recommended. Consider small bowel follow-t hrough if clinically indicated. [facility], , 10/13/2024 6:18 PM
[2024-10-13] MEDS: lisinopriL 10 MG TAB PO STA (19:03)
[2024-10-13 19:04] VITALS: BP 132/100; PULSE 84; TEMP 98.4
== END 2024-10-13 19:06 | disposition home or self-care (01) ==
LOC: EC 16:58
DX: I10 Essential (primary) hypertension (principal)
CPT/HCPCS: 36415; 71046; 80053; 83690; 83735; 83880; 84484; 85025; 85610; 85730; 93005; 96360; 99285